=== PATIENT | female | born 1975 | race Caucasian/White ===

== ENCOUNTER → 2018-09-07 09:11 | Outpatient (CLI) | payer BC, SELFPAY ==
--- NOTE | 2018-09-07 | DI.US.S_ITS ---
PROCEDURE: US ABDOMEN COMPLETE INDICATIONS: PAIN TECHNIQUE: Real-time scanning was performed of the abdominal and retroperitoneal organs, with image documentation. COMPARISON: [facility], US, ABDOMEN COMPLETE, 11/24/2017, 8:35. FINDINGS: Liver: Liver is normal in size and homogeneous in echotexture, mildly hyperechoic consistent with fatty infiltration. Gallbladder: The gallbladder appears normal. Biliary ducts: Intrahepatic bile ducts are non-dilated. Extrahepatic bile duct caliber measures 4.3 mm. Normal is 6-7 mm or less in diameter, or 10 mm or less post-cholecystectomy. Pancreas: Visualized portions of the pancreas are sonographically normal. Spleen: Spleen is normal in size and homogeneous in echotexture. Kidneys: Kidneys are normal in size and echotexture. Right kidney measures 11.4 cm long; left kidney measures 10.3 cm long. No hydronephrosis or nephrolithiasis. No solid masses. Aorta: Visualized aorta is normal in caliber at less than 3 cm. Iliacs: Proximal common iliac arteries are normal in caliber at less than 2.5 cm. IVC: Intrahepatic inferior vena cava is patent. Miscellaneous: No free abdominal fluid. IMPRESSION: Mild fatty infiltration within the liver, no sign of mass lesion or inflammation. The hepatobiliary system appears normal otherwise. Dictated by: Los Donovan M.D. on 09/07/2018 at 10:23 Approved by: Los Donovan M.D. on 09/07/2018 at 10:24
--- NOTE | 2018-09-07 | DI.US.S_ITS ---
LIMITED ULTRASOUND OF RIGHT BREAST AND AXILLA: 09/07/2018 CLINICAL: Palpable right axilla and breast lumps. Comparison is made to exams dated: 10/23/2016 ultrasound, 07/15/2016 ultrasound, and 07/15/2016 mammogram - [facility]. Real-time ultrasound of the right breast 8 o'clock, 11-12 o'clock, and axilla regions was performed on the areas of interest. No discrete cystic or solid mass identified in the areas of palpable abnormalities. No abnormalities were seen sonographically in the right axilla. IMPRESSION: INCOMPLETE: NEEDS ADDITIONAL IMAGING EVALUATION There is no abnormality seen in the right breast to correspond with the palpable abnormality at 8 o'clock, however, clinical followup is recommended. T here is no abnormality seen in the right breast to correspond with the palpable abnormality at 11:30 o'clock, however, clinical followup is recommended. There is no abnormality seen in the right axilla to correspond with the palpable abnormality in the right axilla, however, clinical followup is recommended. Mammography is recommended for further evaluation. This exam was interpreted at Station ID: [id number]. Electronically Signed By: Soren Stahl M.D. [email or web address]/:09/07/2018 11:13:03 letter sent: Additional Imaging Needed Ultrasound BI-RADS: 0 Indeterminate
--- NOTE | 2018-09-07 | DI.US.S_ITS ---
LIMITED ULTRASOUND OF LEFT BREAST AND AXILLA: 09/07/2018 CLINICAL: Palpable left axilla and breast lumps. Comparison is made to exams dated: 07/15/2016 mammogram and 07/15/2016 ultrasound - [facility]. Real-time ultrasound of the left breast 12-2 o'clock, and axilla regions was performed on the areas of interest. No cystic or solid mass identified in the areas of palpable abnormality in the left breast. No abnormalities were seen sonographically in the left axilla. IMPRESSION: INCOMPLETE: NEEDS ADDITIONAL IMAGING EVALUATION There is no abnormality seen in the left breast to correspond with the palpable abnormality at 1:30 o'clock, however, clinical followup is recommended. There is no abnormality seen in the left breast to correspond with the palpable abnormality at 12 o'clock, however, clinical followup is recommended. There is no abnormality seen in the left axilla to correspond with the palpable abnormality in the left axilla, however, clinical followup is recommended. A diagnostic mammogram is also recommended for further evaluation. This exam was interpreted at Station ID: [id number]. Electronically Signed By: Soren Stahl M.D. [email or web address]/:09/07/2018 11:20:26 letter sent: Additional Imaging Needed Ultrasound BI-RADS: 0 Indeterminate
== END ==
PROVIDERS: Family Provider Registered Nurse; PCP Registered Nurse; Visit Provider Registered Nurse
DX: R92.8 Other abnormal and inconclusive findings on diagnostic imaging of breast (principal); R59.9 Enlarged lymph nodes, unspecified; K76.0 Fatty (change of) liver, not elsewhere classified
CPT/HCPCS: 76642; 76700

== ENCOUNTER → 2020-12-20 08:38 | Outpatient (CLI) | payer BC, SELFPAY ==
--- NOTE | 2020-12-20 | DI.MRI.S_ITS ---
PROCEDURE: MR HEAD/BRAIN WO/W CON INDICATIONS: Migraine with aura, not intractable, without statu TECHNIQUE: Noncontrast axial T1 spin echo, axial T2 fast spin echo, sagittal and axial FLAIR, coronal T2 fast spin echo, axial gradient echo, axial diffusion and ADC through the brain. After the administration of contrast, axial and coronal 3D VIBE or T1 spin echo with fat saturation through the brain. COMPARISON: None. FINDINGS: Image quality: Excellent. CSF Spaces: Basal cisterns are patent. No extra-axial fluid collections. Ventricles are normal in size and shape. Brain: No midline shift. No intracranial bleeds or masses. No abnormal intracranial enhancement. The brainstem appears normal. Diffusion-weighted images demonstrate no acute ischemic insults. No chronic ischemic insults. Normal intravascular flow voids are present. Skull and face: Calvarial marrow is normal in signal. Orbits appear normal. Sinuses: Sinuses and mastoids appear clear. IMPRESSION: No evidence of acute ischemia. No acute intracranial signal abnormality or enhancement. Dictated by: Luca Cantu M.D. on 12/20/2020 at 9:35 Approved by: Luca Cantu M.D. on 12/20/2020 at 9:54
== END ==
PROVIDERS: Family Provider Registered Nurse; PCP Registered Nurse; Referring Provider Registered Nurse; Visit Provider Registered Nurse
DX: G43.109 Migraine with aura, not intractable, without status migrainosus (principal)
CPT/HCPCS: 70553